=== PATIENT | female | born 1970 | race Caucasian/White ===

== ENCOUNTER 2020-06-23 14:58 | Outpatient (CLI) | payer BC ==
--- NOTE | 2020-06-30 08:04 | Mammography Report ---
BILATERAL DIGITAL SCREENING MAMMOGRAM 3D/2D WITH AUGMENTATION: 06/23/2020 CLINICAL: Routine screening. No prior exams were available for comparison. There are scattered fibroglandular elements in both br easts. There is a 0.7 cm irregular equal density asymmetry in the left breast middle depth lateral region se en on the craniocaudal view only. It is likely in the lateral aspect of of the left breast between 3 - 6 o'clock position as it is obscured by the overlying breast implant. No other significant masses, calcifications, or other findings are seen in either breast. IMPRESSION: INCOMPLETE: NEEDS ADDITIONAL IMAGING EVALUATION The 0.7 cm irregular equal density asymmetry in the left breast is indeterminate. Additional views w ith possible ultrasound are recommended. The implants are intact. This exam was interpreted at Station ID: [id number]. NOTE: For mammograms, a report in lay terms will be sent to the patient. Approximately 15% of breast malignancies will not be visualized mammographically. In the management of a palpable breast mass, a negative mammogram must not discourage biopsy of a clinically suspicious lesion. Electronically Signed By: Magdy Du M.D. aty/:06/29/2020 14:32:48 ACR BI-RADS Category 0: Incomplete 3340F PARENCHYMAL PATTERN: (A) - The breast(s) demonstrate(s) scattered fibroglandular densities. BI-RADS CATEGORY: (0) - 0 Mammo and US [id number] Immediate follow-up LATERALITY: (L)
== END 2020-06-23 14:59 | disposition home or self-care (01) ==
LOC: DI.N 14:58
DX: Z12.31 Encounter for screening mammogram for malignant neoplasm of breast (principal); R92.8 Other abnormal and inconclusive findings on diagnostic imaging of breast; Z98.82 Breast implant status

== ENCOUNTER 2020-07-10 11:05 | Outpatient (CLI) | payer BC ==
--- NOTE | 2020-07-13 09:24 | Mammography Report ---
UNILATERAL LEFT DIGITAL DIAGNOSTIC MAMMOGRAM 3D/2D: 07/10/2020 CLINICAL: Patient returns today to evaluate a focal asymmetry in the left breast. Comparison is made to exam dated: 06/23/2020 mammogram - [facility]. There are sca ttered fibroglandular elements in left breast. There is a 0.5 cm oval equal density asymmetry in the left breast middle depth lateral region seen on the craniocaudal view only. No other significant masses or calcifications are seen in the breast. Left breast implant. IMPRESSION: INCOMPLETE: NEEDS ADDITIONAL IMAGING EVALUATION The 0.5 cm oval equal density asymmetry in the left breast is indeterminate. A targeted ultrasound is recommended and will immediately follow. This exam was interpreted at Station ID: [id number]. NOTE: For mammograms, a report in lay terms will be sent to the patient. Approximately 15% of breast malignancies will not be visualized mammographically. In the management of a palpable breast mass, a negative mammogram must not discourage biopsy of a clinically suspicious lesion. Electronically Signed By: Tony Dahl M.D. slc/:07/10/2020 13:15:01 ACR BI-RADS Category 0: Incomplete 3340F PARENCHYMAL PATTERN: (A) - The breast(s) demonstrate(s) scattered fibroglandular densities. BI-RADS CATEGORY: (0) - 0 Ultrasound [id number] Immediate follow-up LATERALITY: (B)
--- NOTE | 2020-07-13 09:24 | Ultrasound Report ---
LIMITED ULTRASOUND OF LEFT BREAST: 07/10/2020 CLINICAL: Short term follow up for the left breast. Comparison is made to exams dated: 07/10/2020 mammogram and 06/23/2020 mammogram - [facility]. Color flow and real-time ultrasound of the left breast 3 o'clock region were performed. Lopez scale i mages of the real-time examination were reviewed. There is a benign 0.5 cm x 0.3 cm x 0.2 cm normal lymph node in the left breast at 3 o'clock middle d epth 3 cm from the nipple. This correlates with mammography findings. Color flow imaging demonstrat es that there is no vascularity present. IMPRESSION: BENIGN There is no sonographic evidence of malignancy. The 0.5 cm normal lymph node in the left breast is benign. A 1 year screening mammogram is recommended. Exam findings were conveyed to the patient. This exam was interpreted at Station ID: [id number]. Electronically Signed By: Tony Dahl M.D. slc/:07/10/2020 13:17:46 Ultrasound BI-RADS: 2 Benign BI-RADS CATEGORY: (2) - 2 RECOMMENDATION: (ANNUAL) - Recommend routine annual screening mammography. [id number] 1 year screening LATERALITY: (B)
== END 2020-07-10 11:06 | disposition home or self-care (01) ==
LOC: DI 11:05
PROVIDERS: ATTEND Internal Medicine
DX: R92.8 Other abnormal and inconclusive findings on diagnostic imaging of breast (principal)

== ENCOUNTER 2020-07-15 07:51 | Day surgery (SDC) | payer BC ==
[2020-07-15] MEDS ORDERED: LACTATED RINGERS 1,000 ML IV ONE ×2 (08:17→10:29)
[2020-07-15] MEDS ORDERED: fentaNYL 250 MCG/5 ML VIAL ONE (09:20)
[2020-07-15] MEDS ORDERED: MIDAZOLAM 2 MG/2 ML VIAL ONE (09:20)
[2020-07-15] MEDS ORDERED: PROPOFOL 200 MG/20 ML VIAL IVP ONE ×2 (10:02)
[2020-07-15] MEDS ORDERED: LIDOCAINE-MPF 2% 5 ML VIAL ONE (10:03)
--- NOTE | 2020-07-15 10:51 | ANESTHESIA POST OP EVALUATION ---
Anesthesia Post Eval - Post Anesthesia Eval Vitals: Last Vital Signs Temp 35.8 C L 07/15/20 10:29 Pulse 85 07/15/20 10:29 Resp 14 07/15/20 10:29 BP 116/71 07/15/20 10:29 Pulse Ox 100 07/15/20 10:29 CV Function Including HR & BP: Stable Pain Control: Satisfactory Nausea & Vomiting: Negative Mental Status: Baseline Respiratory Status: Airway Patent Hydration Status: Satisfactory Anesthesia Complications: None
[2020-07-15 10:55] VITALS: BP 117/80
== END 2020-07-15 07:52 | disposition home or self-care (01) ==
LOC: SDS 07:51
PROVIDERS: ATTEND Surgery
PROC: 0DBP8ZZ Excision of Rectum, Via Natural or Artificial Opening Endoscopic (ICD-10-PCS; principal; 2020-07-15 09:15)
DX: Z12.11 Encounter for screening for malignant neoplasm of colon (principal); K62.1 Rectal polyp; T88.52XA Failed moderate sedation during procedure, initial encounter; F32.9 Major depressive disorder, single episode, unspecified; Z79.1 Long term (current) use of non-steroidal anti-inflammatories (NSAID)
CPT/HCPCS: 45380; J3010; J7120

== ENCOUNTER 2020-12-14 09:38 | Outpatient (CLI) | payer BC ==
--- NOTE | 2020-12-15 12:59 | Mammography Report ---
UNILATERAL LEFT DIGITAL DIAGNOSTIC MAMMOGRAM 3D/2D: 12/14/2020 CLINICAL: Patient returns for a 6 month follow up of the left breast. Comparison is made to exams dated: 07/10/2020 mammogram, 06/23/2020 mammogram - [facility], 04/09/2018 mammogram, 02/16/2015 mammogram, 11/18/2013 mammogram, and 08/10/2012 mammogram - [facility]. There are scattered fibroglandular elements in left breast. There is a possible developing 0.5 cm oval equal density asymmetry with fine heterogeneous calcificat ions in the left breast posterior depth lateral region seen on the craniocaudal view only. This appe ars more prominent and increased in size. Prior ultrasound showed a normal lymph node in the vicinit y of the expected location of this asymmetry. However, it appears larger and more conspicuous and di fficult to determine if the two findings correlate today. No other significant masses or calcifications are seen in the breast. IMPRESSION: INCOMPLETE: NEEDS ADDITIONAL IMAGING EVALUATION The possible developing 0.5 cm oval equal density asymmetry in the left breast is indeterminate. An ultrasound is recommended for further evaluation and is scheduled to immediately follow this exam[facility]. The left implant is intact. This exam was interpreted at Station ID: [id number]. NOTE: For mammograms, a report in lay terms will be sent to the patient. Approximately 15% of breast malignancies will not be visualized mammographically. In the management of a palpable breast mass, a negative mammogram must not discourage biopsy of a clinically suspicious lesion. Electronically Signed By: Magdy Du M.D. aty/:12/14/2020 11:26:58 ACR BI-RADS Category 0: Incomplete 3340F PARENCHYMAL PATTERN: (A) - The breast(s) demonstrate(s) scattered fibroglandular densities. BI-RADS CATEGORY: (0) - 0 Ultrasound [id number] Immediate follow-up LATERALITY: (L)
--- NOTE | 2020-12-15 12:59 | Ultrasound Report ---
LIMITED ULTRASOUND OF LEFT BREAST: 12/14/2020 CLINICAL: Palpable left breast lump. Comparison is made to exams dated: 12/14/2020 mammogram, 07/10/2020 ultrasound, 07/10/2020 mammogram, mammogram - [facility], 04/09/2018 mammogram, and 02/16/2015 mammogram - [facility]. Color flow and real-time ultrasound of the left breast 2-5 o'clock region were performed. Lopez scal e images of the real-time examination were reviewed. Redemonstration of previously described benign 0.4 cm normal lymph node in the left breast at 3 o'willis ck posterior depth. This abnormality is not significantly changed. No significant abnormalities were seen sonographically in the left breast. There is no abnormality seen in the left breast to correspond with the mammography finding in the pos terior depth in the outer aspect seen on today's mammogram where there is a possible developing asymm etry with associated fine, heterogeneous calcifications. IMPRESSION: SUSPICIOUS OF MALIGNANCY The 0.4 cm normal lymph node in the left breast is benign. The left implant is intact. Although there is no abnormality seen in the left breast to correspond with the mammography finding i n the posterior depth in the outer aspect, the findings of a possible developing density with increas ing calcifications is at a low suspicion for malignancy. Recommend stereotactic guided biopsy of the asymmetry with calcifications. Findings and recommendations were discussed with the patient by Dr. Oro during today's examination. This exam was interpreted at Station ID: [id number]. Electronically Signed By: Magdy Du M.D. aty/:12/14/2020 11:34:29 Ultrasound BI-RADS: 4a Low suspicion for malignancy BI-RADS CATEGORY: (4a) - Low Susp None [id number] Immediate follow-up LATERALITY: ()
== END 2020-12-14 09:39 | disposition home or self-care (01) ==
LOC: DI 09:38
PROVIDERS: ATTEND Internal Medicine
DX: N63.23 Unspecified lump in the left breast, lower outer quadrant (principal); Z98.82 Breast implant status

== ENCOUNTER 2020-12-20 11:00 | Outpatient (CLI) | payer BC ==
--- NOTE | 2020-12-20 11:55 | Ultrasound Report ---
PROCEDURE: Pelvic w/Transvaginal INDICATIONS: LT SIDE/OVARY PAIN TECHNIQUE: Real-time scanning was performed of the pelvic organs, with image documentation. Additional endovagi nal scanning was necessary due to incomplete visualization of the adnexal and endometrial structures by transabdominal scanning. COMPARISON: None. FINDINGS: No pathologic free abdominal or pelvic fluid. Uterus: Hysterectomy. Ovaries: The right ovary is not seen on the current study, likely secondary to overlying bowel gas. The left ovary measures 1.4 x 1.4 x 1 cm and demonstrates a cyst within it that measures up to 1.2 cm . No adnexal masses are seen on either side. IMPRESSION: Physiologic appearing left ovary, with a 1.2 cm simple appearing cystic follicle within it. Status post hysterectomy. Nonvisualization of the right ovary. Reviewed by: Alex Mcfarlane MD on 12/20/2020 10:54 AM AIDAN Approved by: Alex Mcfarlane MD on 12/20/2020 10:54 AM AIDAN Station ID: [id number]
== END 2020-12-20 11:01 | disposition home or self-care (01) ==
LOC: DI 11:00
PROVIDERS: ATTEND Internal Medicine
DX: R10.2 Pelvic and perineal pain (principal); N83.292 Other ovarian cyst, left side

== ENCOUNTER 2021-04-01 15:08 | Outpatient (CLI) | payer OTHER, BC | END 2021-04-01 15:09 | disposition home or self-care (01) | LOC: LAB 15:08 | PROVIDERS: ATTEND Obstetrics & Gynecology | DX: N95.9 Unspecified menopausal and perimenopausal disorder (principal) | CPT/HCPCS: 36415; 82670; 83001 ==

== ENCOUNTER 2021-04-19 16:26 | Outpatient (CLI) | payer OTHER, BC ==
[2021-04-19 17:28] LABS: BASOPHILS # (AUTO) 0.1 10^3/uL (0.0-0.1); BASOPHILS % (AUTO) 1.7 %; EOSINOPHILS # (AUTO) 0.1 10^3/uL (0.0-0.7); EOSINOPHILS % (AUTO) 1.5 %; HCT - HEMATOCRIT 42.3 % (37.0-47.0); HGB - HEMOGLOBIN 13.9 g/dL (12.0-16.0); LYMPHOCYTES # (AUTO) 1.9 10^3/uL (1.5-3.5); LYMPHOCYTES % (AUTO) 26.7 %; MEAN CORPUSCULAR HGB CONC 32.9 g/dL (32.0-36.0); MEAN CORPUSCULAR VOLUME 91.2 fL (81.0-99.0); MEAN PLATELET VOLUME 9.4 fL (7.9-10.8); MONOCYTES # (AUTO) 0.6 10^3/uL (0.0-1.0); MONOCYTES % (AUTO) 8.9 %; NEUTROPHILS # (AUTO) 4.4 10^3/uL (1.5-6.6); NEUTROPHILS % (AUTO) 60.9 %; PLT - PLATELET COUNT 348 10^3/uL (130-450); RED BLOOD COUNT 4.64 10^6/uL (4.20-5.40); RED CELL DISTRIBUTION WIDTH 12.7 % (12.0-15.0); WHITE BLOOD COUNT 7.2 x10^3/uL (4.8-10.8)
[2021-04-19 17:53] LABS: ALBUMIN 4.1 g/dL (3.2-5.5); ALBUMIN/GLOBULIN RATIO 1.1 (1.0-2.2); BILIRUBIN,TOTAL 0.4 mg/dL (0.2-1.0); CALCIUM 9.4 mg/dL (8.5-10.3); CREATININE 0.7 mg/dL (0.4-1.0); POTASSIUM 4.6 mmol/L (3.5-5.0); TOTAL PROTEIN 7.8 g/dL (6.7-8.2)
[2021-04-19 18:00] LABS: THYROID STIMULATING HORMONE 2.82 uIU/mL (0.34-5.60)
== END 2021-04-19 16:27 | disposition home or self-care (01) ==
LOC: LAB 16:26
PROVIDERS: ATTEND Internal Medicine Medical Oncology
DX: C50.912 Malignant neoplasm of unspecified site of left female breast (principal)
CPT/HCPCS: 36415; 80053; 84443; 85025

== ENCOUNTER 2021-12-03 09:49 | Outpatient (CLI) | payer OTHER, BC ==
[2021-12-03 10:06] LABS: BASOPHILS # (AUTO) 0.1 10^3/uL (0.0-0.1); BASOPHILS % (AUTO) 1.5 %; EOSINOPHILS # (AUTO) 0.1 10^3/uL (0.0-0.7); EOSINOPHILS % (AUTO) 2.1 %; HCT - HEMATOCRIT 39.7 % (37.0-47.0); HGB - HEMOGLOBIN 13.4 g/dL (12.0-16.0); LYMPHOCYTES # (AUTO) 2.4 10^3/uL (1.5-3.5); LYMPHOCYTES % (AUTO) 40.8 %; MEAN CORPUSCULAR HGB CONC 33.8 g/dL (32.0-36.0); MEAN PLATELET VOLUME 9.6 fL (7.9-10.8); MONOCYTES # (AUTO) 0.6 10^3/uL (0.0-1.0); MONOCYTES % (AUTO) 10.3 %; NEUTROPHILS # (AUTO) 2.6 10^3/uL (1.5-6.6); NEUTROPHILS % (AUTO) 45.1 %; PLT - PLATELET COUNT 296 10^3/uL (130-450); RED BLOOD COUNT 4.46 10^6/uL (4.20-5.40); RED CELL DISTRIBUTION WIDTH 13.1 % (12.0-15.0); WHITE BLOOD COUNT 5.8 x10^3/uL (4.8-10.8)
[2021-12-03 10:23] LABS: BILIRUBIN,URINE NEGATIVE (NEGATIVE); GLUCOSE, URINE (UA) NEGATIVE (NEGATIVE); KETONES,URINE (UA) NEGATIVE (NEGATIVE); LEUKOCYTE ESTERASE, URINE NEGATIVE (NEGATIVE); NITRITE,URINE NEGATIVE (NEGATIVE); OCCULT BLOOD,URINE LARGE (NEGATIVE); PROTEIN,URINE NEGATIVE (NEGATIVE); UROBILINOGEN,URINE 0.2 (NORMAL) E.U./dL (NORMAL)
[2021-12-03 10:46] LABS: THYROID STIMULATING HORMONE 3.45 uIU/mL (0.34-5.60)
[2021-12-03 10:56] LABS: ALBUMIN 4.2 g/dL (3.2-5.5); ALBUMIN/GLOBULIN RATIO 1.2 (1.0-2.2); ALKALINE PHOSPHATASE 60 IU/L (42-121); ALT ALANINE AMINOTRANSFERASE 39 IU/L (10-60); AST ASPARTATE AMINOTRANSFERASE 41 IU/L (10-42); BILIRUBIN,TOTAL 0.6 mg/dL (0.2-1.0); BUN - BLOOD UREA NITROGEN 14 mg/dL (6-20); CALCIUM 9.2 mg/dL (8.5-10.3); CARBON DIOXIDE - CO2 26 mmol/L (21-32); CHLORIDE 107 mmol/L (101-111); CHOL/HDL RATIO 3.5 (<4.4); CHOLESTEROL 175 mg/dL; CREATININE 0.6 mg/dL (0.4-1.0); GFR - MDRD 105 (>89); GLUCOSE 117 mg/dL (70-100); HDL CHOLESTEROL 50 mg/dL; LDL CHOLESTEROL,CALCULATED 114 mg/dL; LDL/HDL RATIO 2.3 (<4.4); POTASSIUM 4.6 mmol/L (3.5-5.0); SODIUM 142 mmol/L (135-145); TOTAL PROTEIN 7.6 g/dL (6.7-8.2); TRIGLYCERIDES 57 mg/dL; VLDL CHOLESTEROL 11 mg/dL
[2021-12-03 11:12] LABS: CLARITY,URINE CLEAR (CLEAR)
[2021-12-03 11:13] LABS: BACTERIA,URINE Few /HPF (None Seen); SQUAMOUS EPITHELIAL CELL,UR FEW Squamous (<= Few); WBC,URINE 0-3 /HPF (0-5)
[2021-12-03 20:26] LABS: ESTIMATED AVERAGE GLUCOSE 105 mg/dL (70-100); HEMOGLOBIN A1c% 5.3 % (4.27-6.07)
== END 2021-12-03 09:50 | disposition home or self-care (01) ==
LOC: LAB 09:49
PROVIDERS: ATTEND Internal Medicine
DX: C50.919 Malignant neoplasm of unspecified site of unspecified female breast (principal); R10.2 Pelvic and perineal pain; R03.0 Elevated blood-pressure reading, without diagnosis of hypertension; R53.83 Other fatigue; Z13.6 Encounter for screening for cardiovascular disorders; R73.01 Impaired fasting glucose; R31.9 Hematuria, unspecified
CPT/HCPCS: 36415; 80053; 80061; 81001; 82306; 82607; 83036; 83721; 84443; 85025; 87086

== ENCOUNTER 2021-12-07 08:00 | Outpatient (CLI) | payer OTHER, BC ==
[2021-12-07 15:46] LABS: BILIRUBIN,URINE NEGATIVE (NEGATIVE); GLUCOSE, URINE (UA) NEGATIVE (NEGATIVE); KETONES,URINE (UA) TRACE mg/dL (NEGATIVE); LEUKOCYTE ESTERASE, URINE NEGATIVE (NEGATIVE); NITRITE,URINE NEGATIVE (NEGATIVE); OCCULT BLOOD,URINE NEGATIVE (NEGATIVE); PROTEIN,URINE NEGATIVE (NEGATIVE); UROBILINOGEN,URINE 0.2 (NORMAL) E.U./dL (NORMAL)
[2021-12-07 15:48] LABS: CLARITY,URINE CLEAR (CLEAR)
[2021-12-07 15:59] LABS: BACTERIA,URINE Few /HPF (None Seen); CASTS, URINE 3-5 Hyaline Casts /LPF; MUCUS,URINE Few Strands; RBC,URINE 0-5 /HPF (0-5); SQUAMOUS EPITHELIAL CELL,UR MOD Squamous (<= Few); WBC,URINE 0-3 /HPF (0-5)
== END 2021-12-07 23:59 | disposition home or self-care (01) ==
LOC: LAB.R 08:00
PROVIDERS: ATTEND Internal Medicine
DX: I10 Essential (primary) hypertension (principal); R31.9 Hematuria, unspecified
CPT/HCPCS: 81001; 87086

== ENCOUNTER 2022-11-29 19:04 | Outpatient (CLI) | payer OTHER, BC ==
--- NOTE | 2022-11-30 09:48 | XRAY Report ---
PROCEDURE: Ankle 2 View RT INDICATIONS: PAIN IN RIGHT ANKLE TECHNIQUE: 2 views of the ankle were acquired. COMPARISON: None. FINDINGS: Bones: No fractures or dislocations. Ankle mortise is normally aligned. No suspicious bony lesions . Calcaneal enthesopathy. Soft tissues: No tibiotalar joint effusion. Mild lateral malleolar soft tissue swelling. IMPRESSION: No fracture or dislocation. Reviewed by: MIMI Khan on 11/30/2022 9:46 AM PDT Approved by: He Edwards MD on 11/30/2022 9:46 AM PDT Station ID: [id number]
--- NOTE | 2022-11-30 09:49 | XRAY Report ---
PROCEDURE: Knee 3 View RT INDICATIONS: PAIN IN RIGHT KNEE TECHNIQUE: 3 views of the right knee(s) were acquired. COMPARISON: None. FINDINGS: Bones: No fractures or dislocations. No suspicious bony lesions. Tricompartmental knee joint spac e narrowing with periarticular osteophyte formation, most notably involving the medial femoral tibial and the lateral patellofemoral knee joint Soft tissues: No knee joint effusion. No suspicious soft tissue calcifications. IMPRESSION: Tricompartmental right knee joint degeneration. Reviewed by: MIMI Khan on 11/30/2022 9:47 AM PDT Approved by: He Edwards MD on 11/30/2022 9:47 AM PDT Station ID: [id number]
== END 2022-11-29 19:05 | disposition home or self-care (01) ==
LOC: DI 19:04
PROVIDERS: ATTEND Registered Nurse
DX: M25.571 Pain in right ankle and joints of right foot (principal); M17.11 Unilateral primary osteoarthritis, right knee

== ENCOUNTER 2023-01-30 08:00 | Outpatient (CLI) | payer OTHER, BC ==
--- NOTE | 2023-01-30 16:06 | XRAY Report ---
PROCEDURE: Knee 4 View RT INDICATIONS: RIGHT KNEE PAIN TECHNIQUE: 4 views of the knee(s) were acquired. COMPARISON: None. FINDINGS: Bones: Normal mineralization. No fractures. Moderate medial compartment joint space loss and tricomp artment marginal spurring. Soft tissues: No knee joint effusion. No suspicious soft tissue calcifications or masses. No chondr ocalcinosis. IMPRESSION: 1. Tricompartment osteoarthritic changes, most severe in the medial compartment.] 2. Right knee is slightly worse than left. Reviewed by: Yumiko Mendoza MD on 01/30/2023 4:05 PM PST Approved by: Yumiko Mendoza MD on 01/30/2023 4:05 PM PST Station ID: [id number]
== END 2023-01-30 23:59 | disposition home or self-care (01) ==
LOC: DI.WOS 08:00
PROVIDERS: ATTEND Physician Assistant Surgical
DX: M17.11 Unilateral primary osteoarthritis, right knee (principal)

== ENCOUNTER 2023-02-07 15:18 | Outpatient (CLI) | payer OTHER, BC ==
--- NOTE | 2023-02-07 16:14 | Sleep Patient Instructions ---
Sleep Center Visit Summary - Patient Visit Information Reason for Visit: Initial consult for evaluation of sleep disordered breathing and other sleep issues. - Patient Instructions Instructions Attached: Sleep Study, Sleep Study Home Monitor Additional Instructions: You will be completing a sleep study, either an in-lab polysomnography (PSG) or home sleep study (HST). You will follow-up in the sleep care office after the sleep study is completed to hear the results and talk about therapy, if needed. You will be called by our office staff to schedule this appointment, but you may contact us with any questions. - Clinic Information Contact: [facility] [address] [place] [id number] [email or web address] T: [phone]
--- NOTE | 2023-02-07 16:21 | SLEEP CARE CONSULTATION ---
Information from patient questionnaire entered by Bernice Guzman. I have reviewed and concur with the information entered by Bernice Guzman. This document represents the service I personally performed and the decisions made by me, Christine Luz ARNP. History of Present Illness Service Date and Time: 02/07/2023 1518 Reason for Visit: New patient Chief Complaint: reports: Insomnia Date of Onset: YRS Usual bedtime: 1 AM Time it takes to fall asleep: SOMETIMES NEVER Snores at night: Yes Observed to quit breathing while asleep: No Sleeps alone due to snoring: No Number of times waking at night: 7+ Reasons for waking at night: reports: Bathroom. denies: Choking, Snoring, Gasping for air Toss, Turn, or Twitch while sleeping: Yes Recalls having dreams: Yes Usually gets out of bed at: 10AM (get up 0700 to take daughter to school, lays back down and sleeps) Feels refreshed in the morning: Yes Morning headache: Yes (occasionally; once a month maybe) Sleepy or fatigued during the day: Yes Ever fallen asleep while driving: No Takes day naps: No Prior sleep studies: No Additional HPI information: I had the pleasure of seeing MINI FLORES today regarding the possibility of her having a sleep disorder. Her current complaint is insomnia. She says she cannot sleep. She lays in bed and "thinks of nonsense", nothing that is stressful. She says she has Xanax to sleep and it does "shut off my brain". She can fall asleep with it. She says she cannot fall asleep without it and has been awake for days at a time. She is seeing a psychiatrist and they are trying to wean her off of her Xanax. She was just stared on diazepam but still has to take the Xanax to get to sleep. She says she has tried meditation, hypnosis, cool pillow, etc with no improvement of her ability to go asleep. She says reading sometimes helps her to get sleepy but as soon as she closes eyes, she will wake back up. She states once she gets to sleep she may stay asleep. She says while she is waiting to go to sleep she will get up 7 or more times before she can fall asleep. She does snore sometimes and feels that is after an exhausted sleep and may wake up with sinus headache (5-6 hours of sleep). She says her has not seen her stop breathing. - Parasomnia Symptoms Ever been unable to move upon waking from sleep: Yes Walks in sleep: No Talks in sleep: No Ever acted out dreams in sleep: No Ever felt weak in the knees when startled or emotional: No Bothered by creepy, crawly, restless sensations in legs: Yes (occasional) Problems with memory or concentration: Yes (feels it is due to medications; memory) Subjective Initial [place] Sleepiness Scale score: 2 Past Medical History Past Medical History: reports: Arthritis, Anxiety, Depression, GERD, Other (BREAST CANCER 01/2021) Social History The patient's occupation is a NO. Patient is and lives in [place]. Have you smoked in the past 12 months: No Alcohol use: Yes Alcohol amount and frequency: 2-3 DRINKS SOMETIMES WEEKENDS /HOLIDAYS Caffeine use: Yes Caffeine amount and frequency: 1 PER DAY BUT TRYING TO GIVE IT UP Family History Family history of sleep disordered breathing: Yes Family Hx Sleep Apnea: Mother: Snoring, Sibling: Snoring Allergies and Home Medications Known drug allergies: No Drug allergies reviewed: Yes Home medication list reviewed: Yes (as listed) Allergy and home medication list: Allergies No Known Drug Allergies Allergy (Verified 02/06/23 10:58) Home Medications Medication Instructions Recorded Confirmed Last Taken Type ALPRAZolam [Alprazolam] 1 tab ORAL DAILY PRN 07/14/20 02/07/23 07/14/20 History DULoxetine [Cymbalta] 2 tab ORAL DAILY 07/14/20 02/07/23 07/14/20 History Omeprazole 20 mg PO PRN PRN 04/12/22 02/07/23 Unknown History Anastrozole 1 mg PO DAILY 01/10/23 02/07/23 Unknown History Propranolol [Inderal] See Rx Instructions .ROUTE .COMPLEX 02/07/23 02/07/23 Unknown History diazePAM [Valium] See Rx Instructions .ROUTE .COMPLEX 02/07/23 02/07/23 Unknown History Review of Systems Weight gain over past 5 years: 10 Cardiovascular: reports: high blood pressure, palpitations Gastrointestinal: reports: heartburn, nausea Urinary: reports: other (BLADDER SLING 2018) Neurological: reports: headaches Psychiatric: reports: anxiety, depression Ear/Nose/Throat: reports: nasal congestion, sinus problems, dry mouth/throat. denies: tonsillectomy Endocrine: reports: sluggishness, increased appetite Musculoskeletal: reports: joint pain, neck pain, back pain Physical Exam Vital signs obtained and entered by: BERNICE Eng MA Blood Pressure: 126/76 (LEFT ARM) Cuff size: regular Heart Rate: 95 O2 Saturation: 96 Height: 5 ft 7 in Weight: 221 lb 9.6 oz Body Mass Index: 34.7 BMI Classification: Obese Neck circumference: 14.25 Mouth and throat: narrow oropharynx Soft palate: long Hard palate: normal Uvula: normal Uvula visualization: 25% Mallampati Class III Tongue: enlarged in size with teeth white on lateral edges Tonsils: small Neck: normal w/o lymphadenopathy or thyromegaly Heart: regular rate and rhythm Lungs: clear bilaterally Impression and Plan 1. Suspected Obstructive Sleep Apnea-Hypopnea Syndrome, as suggested by a history of irregular snoring, frequent awakening during the night, cognitive impairment and insomnia. Narrow oropharynx and obesity are common predisposing factors for obstructive sleep apnea-hypopnea syndrome. I recommend proceeding to polysomnography to confirm the diagnosis and to assess severity. If the patient has significant sleep disordered breathing, a manual CPAP titration study will also be performed to find the optimal treatment pressure. I informed the patient of what the sleep studies involve and after some discussion, obtained agreement to proceed. The pathophysiology of obstructive sleep apnea-hypopnea syndrome was discussed with the patient and health risks of cardiovascular and cerebrovascular disease if not treated. Risks of drowsy driving discussed in detail and patient advised to avoid long distance driving and to pick pulling machine tender at the first sign of drowsiness. Patient agreed to plan. * Schedule polysomnography. * Avoid long distance driving or driving when feeling sleepy. * Avoid alcohol, sedative and muscle relaxant around bedtime. * Attempt to lose weight. * Review instructions provided by trained office staff on how to prepare for the sleep study. * Return for follow-up after sleep study completed. Counseling Topics: Weight loss health impact Visit Type: In Office Time Spent with Patient (minutes): 36 Provider Statement: I spent 100% of the Face to Face Visit with the patient with greater than 50% spent counseling the patient and coordination of care.
[2023-02-07 16:25] VITALS: BP 126/76; O2SAT 96
== END 2023-02-07 15:19 | disposition home or self-care (01) ==
LOC: SC 15:18
PROVIDERS: ATTEND Nurse Practitioner Family
DX: G47.8 Other sleep disorders (principal); G47.00 Insomnia, unspecified; R06.83 Snoring; F32.A Depression, unspecified; E66.9 Obesity, unspecified; Z68.34 Body mass index [BMI] 34.0-34.9, adult
CPT/HCPCS: 99203; 99212

== ENCOUNTER 2023-03-14 12:57 | Outpatient (CLI) | payer OTHER, BC ==
[2023-03-14 13:09] LABS: BASOPHILS # (AUTO) 0.1 10^3/uL (0.0-0.1); BASOPHILS % (AUTO) 0.8 %; EOSINOPHILS # (AUTO) 0.1 10^3/uL (0.0-0.7); EOSINOPHILS % (AUTO) 1.2 %; HCT - HEMATOCRIT 42.3 % (37.0-47.0); HGB - HEMOGLOBIN 14.1 g/dL (12.0-16.0); LYMPHOCYTES # (AUTO) 2.1 10^3/uL (1.5-3.5); LYMPHOCYTES % (AUTO) 17.5 %; MEAN CORPUSCULAR HEMOGLOBIN 29.3 pg (27.0-31.0); MEAN CORPUSCULAR HGB CONC 33.3 g/dL (32.0-36.0); MEAN CORPUSCULAR VOLUME 87.8 fL (81.0-99.0); MEAN PLATELET VOLUME 9.1 fL (7.9-10.8); MONOCYTES % (AUTO) 8.5 %; NEUTROPHILS # (AUTO) 8.5 10^3/uL (1.5-6.6); NEUTROPHILS % (AUTO) 71.7 %; PLT - PLATELET COUNT 356 10^3/uL (130-450); RED BLOOD COUNT 4.82 10^6/uL (4.20-5.40); RED CELL DISTRIBUTION WIDTH 13.3 % (12.0-15.0); WHITE BLOOD COUNT 11.8 x10^3/uL (4.8-10.8)
[2023-03-14 13:49] LABS: ALBUMIN 4.6 g/dL (3.2-5.5); ALBUMIN/GLOBULIN RATIO 1.3 (1.0-2.2); ALKALINE PHOSPHATASE 83 IU/L (42-121); ALT ALANINE AMINOTRANSFERASE 15 IU/L (10-60); AMYLASE 38 U/L (28-100); AST ASPARTATE AMINOTRANSFERASE 16 IU/L (10-42); BILIRUBIN,TOTAL 0.4 mg/dL (0.2-1.0); BUN - BLOOD UREA NITROGEN 13 mg/dL (6-20); CALCIUM 10.1 mg/dL (8.5-10.3); CARBON DIOXIDE - CO2 30 mmol/L (21-32); CHLORIDE 104 mmol/L (101-111); CHOL/HDL RATIO 3.1 (<4.4); CHOLESTEROL 233 mg/dL; CREATININE 0.6 mg/dL (0.6-1.3); GFR - MDRD 105 (>89); GLUCOSE 105 mg/dL (74-104); HDL CHOLESTEROL 76 mg/dL; LDL CHOLESTEROL,CALCULATED 133 mg/dL; LDL/HDL RATIO 1.8 (<4.4); LIPASE 26 U/L (11-82); POTASSIUM 4.1 mmol/L (3.5-4.5); SODIUM 140 mmol/L (135-145); TOTAL PROTEIN 8.1 g/dL (6.4-8.9); TRIGLYCERIDES 120 mg/dL (48-352); VLDL CHOLESTEROL 24 mg/dL
[2023-03-14 13:57] LABS: THYROID STIMULATING HORMONE 2.93 uIU/mL (0.34-5.60)
== END 2023-03-14 12:58 | disposition home or self-care (01) ==
LOC: LAB 12:57
PROVIDERS: ATTEND Nurse Practitioner
DX: R10.12 Left upper quadrant pain (principal); Z13.220 Encounter for screening for lipoid disorders; R53.83 Other fatigue
CPT/HCPCS: 36415; 80053; 80061; 82150; 83690; 83721; 84439; 84443; 85025

== ENCOUNTER 2023-03-31 13:37 | Outpatient (CLI) | payer OTHER ==
[2023-03-31 13:51] LABS: BASOPHILS # (AUTO) 0.1 10^3/uL (0.0-0.1); BASOPHILS % (AUTO) 1.5 %; EOSINOPHILS # (AUTO) 0.2 10^3/uL (0.0-0.7); EOSINOPHILS % (AUTO) 1.9 %; HCT - HEMATOCRIT 42.2 % (37.0-47.0); HGB - HEMOGLOBIN 13.7 g/dL (12.0-16.0); LYMPHOCYTES # (AUTO) 2.1 10^3/uL (1.5-3.5); LYMPHOCYTES % (AUTO) 26.3 %; MEAN CORPUSCULAR HEMOGLOBIN 29.1 pg (27.0-31.0); MEAN CORPUSCULAR HGB CONC 32.5 g/dL (32.0-36.0); MEAN CORPUSCULAR VOLUME 89.6 fL (81.0-99.0); MEAN PLATELET VOLUME 8.9 fL (7.9-10.8); MONOCYTES # (AUTO) 0.7 10^3/uL (0.0-1.0); MONOCYTES % (AUTO) 8.3 %; NEUTROPHILS # (AUTO) 4.8 10^3/uL (1.5-6.6); NEUTROPHILS % (AUTO) 61.7 %; PLT - PLATELET COUNT 365 10^3/uL (130-450); RED BLOOD COUNT 4.71 10^6/uL (4.20-5.40); RED CELL DISTRIBUTION WIDTH 13.7 % (12.0-15.0); WHITE BLOOD COUNT 7.8 x10^3/uL (4.8-10.8)
== END 2023-03-31 13:38 | disposition home or self-care (01) ==
LOC: LAB 13:37
PROVIDERS: ATTEND Nurse Practitioner
DX: D72.829 Elevated white blood cell count, unspecified (principal)
CPT/HCPCS: 36415; 85025

== ENCOUNTER 2023-08-01 16:02 | Outpatient (CLI) | payer OTHER | END 2023-08-01 16:03 | disposition home or self-care (01) | LOC: LAB 16:02 | PROVIDERS: ATTEND Internal Medicine | DX: G25.81 Restless legs syndrome (principal) | CPT/HCPCS: 36415; 82728 ==